=== PATIENT | female | born 1935 | race Caucasian/White ===

== ENCOUNTER → 2017-10-15 | Outpatient (CLI) | payer MEDICARE, OTHER ==
[~2017-10-15] MED LIST: SYNTHROID88 MCG PO
--- NOTE | 2017-10-15 14:52 | Diagnostic Imaging Report ---
PROCEDURE:EXTREMITY NONVASCULAR ULTRASOUND COMPARISON:None. INDICATIONS:SWELLING AND PAIN S/P INJURY TECHNIQUE:Grayscale and color Doppler images were performed of the soft tissues of the left lower leg in the region of the pain and swelling. FINDINGS/CONCLUSION: There is subcutaneous edema. No mass, abscess, or other collections. Dictated by: Gabe Abdullahi M.D. on 10/15/2017 at 15:01 Electronically approved by: Gabe Abdullahi M.D. on 10/15/2017 at 15:02
== END ==
LOC: US 13:47
DX: M79.662 Pain in left lower leg (principal); M79.89 Other specified soft tissue disorders
CPT/HCPCS: 76882

== ENCOUNTER → 2017-10-27 | Outpatient (CLI) | payer MEDICARE, OTHER ==
--- NOTE | 2017-10-29 08:31 | Diagnostic Imaging Report ---
TECHNIQUE: Magnetic resonance imaging of the LEFT tibia and fibula was performed WITHOUT injected contrast. HISTORY: Pain, swelling, fell COMPARISON: None available. FINDINGS: BONES: No acute fracture. No focal or infiltrative bone marrow replacing abnormality. SOFT TISSUES: Severe atrophy of the distal medial head of the gastrocnemius, incidentally, there is atrophy of the contralateral medial head gastrocnemius on the large [id number]. Nonspecific diffuse superficial soft tissue edema of the distal leg. IMPRESSION: 1. Nonspecific diffuse superficial soft tissue edema of the distal leg. 2. Severe atrophy of the medial head of the gastrocnemius, this appears to be a relatively symmetric finding on the large [id number] images. 3. No acute fracture or hematoma. Signed by: Dr. Alexander Noyola D.O., M.M.M. on 10/29/2017 8:28 AM
== END ==
LOC: MRI 12:39
DX: M79.605 Pain in left leg (principal); M79.89 Other specified soft tissue disorders

== ENCOUNTER → 2018-06-05 | Outpatient (CLI) | payer MEDICARE, OTHER ==
--- NOTE | 2018-06-05 13:00 | Diagnostic Imaging Report ---
EXAM: Bone mineral density study 06/05/2018 11:52 AM INDICATION: \S\OSTEOPOROSIS COMPARISON: None FINDINGS: Evaluation of the left hip and lumbar spine was performed. The study is technically adequate. The patient's fracture risk is compared to an age-matched control. The patient denies prior surgery/fracture of the spine, hips or forearm. LEFT HIP * Femoral neck bone mineral density: 0.664 gm/cm2, T-score is -1.7, Z-score is 0.8. * Total bone mineral density: 0.850 gm/cm2, T-score is -0.8, Z-score is 1.5. 10 -year fracture risk per WHO Fracture Risk Assessment Tool (FRAX) for: Major osteoporotic fracture is 14% Hip fracture is 3.8% The above fracture probability is calculated for an untreated patient. Fracture probably may be lower if the patient has received treatment. All treatment decisions require clinical judgment and consideration of individual patient factors, including patient preferences, comorbidities, previous drug use and risk factors not captured in the FRAX model (e.g. frailty, falls, vitamin D deficiency, increased bone turnover, interval significant decline in BMD). LUMBAR SPINE * Total bone mineral density: 1.061 gm/cm2, T-score is 0.1, Z-score is 2.9. IMPRESSION: 1. LEFT HIP: Bone mineralization by WHO Classification is osteopenia, the fracture risk is medium. 2. LUMBAR SPINE: Bone mineralization by WHO Classification is normal, the fracture risk is not increased. Signed by: Dr. Asim Song M.D. on 06/05/2018 12:56 PM
== END ==
LOC: DX 11:42
DX: Z12.31 Encounter for screening mammogram for malignant neoplasm of breast (principal); M89.9 Disorder of bone, unspecified
CPT/HCPCS: 77067; 77080

== ENCOUNTER → 2018-11-01 | Outpatient (CLI) | payer MEDICARE ==
--- NOTE | 2018-11-01 16:47 | Diagnostic Imaging Report ---
PROCEDURE:X-RAY MODIFIED BARIUM SWALLOW COMPARISON:None. INDICATIONS:Dysphasia DISCUSSION:Fluoroscopic examination was performed in conjunction with speech pathology, during swallowing of a variety of thin and thick liquid consistencies. Fluoroscopy time: Not available Total dose: Not available CONCLUSION:No penetration or aspiration. Please see the report from speech pathology for complete details. Bakari Flores D.O. Dictated by: Bakari Flores D.O. on 11/01/2018 at 17:00 Electronically approved by: Bakari Flores D.O. on 11/01/2018 at 17:00
== END ==
LOC: DX 10:43
PROVIDERS: ATTEND Otolaryngology
DX: R13.10 Dysphagia, unspecified (principal); K21.9 Gastro-esophageal reflux disease without esophagitis
CPT/HCPCS: 74230

== ENCOUNTER → 2019-06-18 | Outpatient (CLI) | payer MEDICARE ==
--- NOTE | 2019-06-20 09:29 | Diagnostic Imaging Report ---
#[id number] - [id number] #BILATERAL DIGITAL SCREENING MAMMOGRAM WITH CAD: 06/18/2019 CLINICAL: Routine screening. Comparison is made to exam dated: 06/05/2018 mammogram - [facility] [place]. Current study contains 4 films. The tissue of both breasts is predominantly fatty. Current study was also evaluated with a Computer Aided Detection (CAD) system. Benign appearing calcifications are noted bilaterally. There is benign, stable nodularity in both breasts. No significant masses, calcifications, or other findings are seen in either breast. IMPRESSION: BENIGN There is no mammographic evidence of malignancy. A 1 year screening mammogram is recommended. The patient will be notified by letter of the results. SIRENA ARCOS M.D. ct/penrad:06/19/2019 12:58:31 Ssis Ssrs Developer: Alix IRIZARRY)(Caitie), [facility] [place] letter sent: Normal Exam Mammogram BI-RADS: 2 Benign
== END ==
LOC: MAMMO 10:10
DX: Z12.31 Encounter for screening mammogram for malignant neoplasm of breast (principal)
CPT/HCPCS: 77067

== ENCOUNTER → 2021-03-08 | Outpatient (CLI) | payer MEDICARE, OTHER | LOC: RAD 12:37 | DX: M54.5 Low back pain (principal); M25.552 Pain in left hip; M25.551 Pain in right hip; M25.562 Pain in left knee; M25.561 Pain in right knee | CPT/HCPCS: 72110; 73521; 77080 ==